=== PATIENT | male | born 1985 | race Caucasian/White ===

== ENCOUNTER 2018-03-29 08:17 | Emergency (ER) | payer OTHER ==
[2018-03-29 08:34] VITALS: BP 141/84
--- NOTE | 2018-03-29 08:50 | UC ---
Skin Complaint HPI - HPI Summary HPI Summary: Pt c/o painful and pruritic rash on hands mostly palmar aspect and plantar aspect of feet X 2 days. Also, c/o crusty, painful rash on scalp. Pt's two young, children have been diagnosed with hand, foot, mouth disease. Pt reports that 2-3 days prior to rash, he had sore throat, and generalized malaise that has since resolved. - History of Current Complaint Chief Complaint: UCSkin Time Seen by Provider: 03/29/18 08:27 Stated Complaint: SKIN COMPLAINT Hx Obtained From: Patient Onset/Duration: Gradual Onset, Lasting Days, Still Present Skin Exposure Onset/Duration: Days Ago Timing: Constant Onset Severity: Mild Current Severity: Moderate Pain Intensity: 8 Location: Discrete, Hand (Right), Hand (Left), Foot (Right), Foot (Left), Other - scalp Character: Pruritus, Redness, Painful Aggravating Factor(s): Touch Alleviating Factor(s): Nothing Associated Signs & Symptoms: Positive: Rash, Tenderness - Allergy/Home Medications Allergies/Adverse Reactions: Allergies Allergy/AdvReac Type Severity Reaction Status Date / Time No Known Allergies Allergy Verified 03/29/18 08:35 Home Medications: Home Medications Hydrocortisone 1% CREAM* [Hytone Cream 1%*] 1 applic TOPICAL BID 03/29/18 [ History Confirmed 03/29/18] OXcarbazepine TAB(*) [Trileptal 300 mg TAB(*)] 300 mg PO BID 03/29/18 [History Confirmed 03/29/18] Review of Systems Constitutional: Negative Skin: Rash Eyes: Negative ENT: Negative Respiratory: Negative Cardiovascular: Negative Gastrointestinal: Negative Genitourinary: Negative Motor: Negative Neurovascular: Negative Musculoskeletal: Negative Neurological: Negative Psychological: Negative Is Patient Immunocompromised?: No All Other Systems Reviewed And Are Negative: Yes PMH/Surg Hx/FS Hx/Imm Hx Previously Healthy: Yes - Surgical History Surgical History: None - Family History Known Family History: Positive: Cardiac Disease - Social History Occupation: Employed Full-time Lives: With Family Alcohol Use: Rare Substance Use Type: None Smoking Status (MU): Current Every Day Smoker Type: eCigarettes Have You Smoked in the Last Year: Yes Physical Exam Triage Information Reviewed: Yes Appearance: Well-Appearing Vital Signs: Initial Vital Signs Temp 99.1 F 03/29/18 08:27 Pulse 94 03/29/18 08:27 Resp 18 03/29/18 08:27 BP 141/84 03/29/18 08:27 Pulse Ox 97 03/29/18 08:27 Vital Signs Reviewed: Yes Eye Exam: Normal ENT Exam: Normal Dental Exam: Normal Neck exam: Normal Respiratory Exam: Normal Respiratory: Positive: No respiratory distress Musculoskeletal Exam: Normal Neurological Exam: Normal Psychological Exam: Normal Skin: Positive: rashes - flat, circular, erythematous pencil eraser size rash on palms of hands and soles of feet, scalp, crusty, yellow erythematous, face: significant acne, question of scabies like rash on hands Course/Dx - Differential Diagnoses - Skin Complaint Differential Diagnoses: Cellulitis - Diagnoses Provider Diagnoses: hand foot mouth. cradle cap. cellulitis on scalp Discharge - Sign-Out/Discharge Documenting (check all that apply): Discharge/Admit/Transfer - Discharge Plan Condition: Stable Disposition: HOME Prescriptions: DOXYcycline CAP(*) [DOXYcycline 100MG CAP(*)] 100 mg PO Q12H #14 cap Patient Education Materials: Cellulitis (ED), Hand, Foot, and Mouth Disease (ED ) Forms: *Work Release Referrals: [facility] [Outside] No Primary Care Phys,NOPCP [Primary Care Provider] - - Billing Disposition and Condition Condition: STABLE Disposition: HOME
== END 2018-03-29 09:14 | disposition home or self-care (01) ==
LOC: UCCORT 08:17
DX: B08.4 Enteroviral vesicular stomatitis with exanthem (principal); L21.0 Seborrhea capitis; L03.811 Cellulitis of head [any part, except face]; F17.210 Nicotine dependence, cigarettes, uncomplicated
CPT/HCPCS: 99202; G0463